=== PATIENT | male | born 1965 | race Two or more races ===

== ENCOUNTER 2019-05-18 10:39 | Emergency (ER) | payer MEDICAID ==
[~2019-05-18] VITALS: Ht 175.3 cm; Wt 72.6 kg
[2019-05-18] MEDS ORDERED: levETIRAcetam 1,000mg/NS100ml 100 ML IVPB ONE (10:45)
--- NOTE | 2019-05-18 10:47 | Emergency Room Report ---
History of Present Illness General Chief Complaint: Seizure Source: Patient, EMS Present Illness HPI Disclaimer: Please note that this report is being documented using DRAGON technology. This can lead to erroneous entry secondary to incorrect interpretation by the dictating instrument. HPI: 53-year-old homeless male resents by EMS for reported seizures. The patient admits to drinking alcohol heavily and falling with a head injury. He is not very cooperative with history and frequently drifts off. EMS states that a good [employer] saw him sitting on a park bench reportedly convulsing. EMS was called and found him somnolent but arousable, did not notice seizure- like activity. They did note a hematoma over the forehead. No medications were given en route. He was conversant and oriented according to EMS. Patient has not been to this emergency department before however EMS states that he does have a seizure history according to their records. Patient does not know what medications he is supposed to be taking for seizure and does not take any medications regularly. He admits to alcohol use today stating that he drank "too much" last night. He has no complaints at this time. PMH: Seizure disorder, alcohol abuse PSH: Denies Allergies: Denies Social Hx: Alcohol abuse Allergies: Coded Allergies: PEANUT (Verified Allergy, Unknown, 05/18/19) Review of Systems All Other Systems: negative except mentioned in HPI Physical Exam Vital Signs Date Time Temp Pulse Resp B/P (MAP) Pulse Ox O2 Delivery O2 Flow Rate FiO2 05/18/19 10:30 98.2 100 16 143/85 (104) 98 Room Air General: Somnolent but easily arousable. HEENT: There is a hematoma over the left side of the forehead. No laceration, no bleeding. Pupils are equal round and reactive. Approximately 4 mm bilaterally. Extraocular movements are intact. Mucous membranes are dry Neck: Supple, trachea midline Chest Wall: No tenderness, no deformity Cardiovascular: Borderline tachycardia. S1 and S2 normal. No murmur appreciated Resp: Normal work of breathing. No cough, wheezing or crackles appreciated Abdomen: Abdomen is soft, nondistended. Nontender Skin: Intact. No abrasions, laceration or rash over the exposed skin MSK: Normal tone and bulk. Moving all extremities. No obvious deformity. Neuro: Somnolent but arousable. GCS 13. Moving all extremities. Patient is uncooperative with a full neuro exam. Back/Spine: No midline tenderness in the cervical spine. Medical Decision Making Homeless Attestation Patient is stable and appropriate for outpatient follow-up Diagnostic Impression: Primary Impression: Hypokalemia Additional Impressions: Scalp contusion Alcohol intoxication Seizure disorder ER Course Is a 53-year-old homeless male presenting for evaluation of reported seizure- like activity. The patient does not know whether or not he had a seizure but states he was drinking heavy amount of alcohol last evening. Cannot recall last drink but states he was having a lot of liquor. Does not know whether he should be taking antiepileptic medications. He appears to have a head injury with a small hematoma over the left forehead. Will obtain a CT scan of the head , comprehensive labs and give IV fluids. He was loaded with 1 g of Keppra. Laboratory Tests Test 05/18/19 11:40 05/18/19 12:40 White Blood Count 8.0 K/UL (4.8-10.8) Red Blood Count 3.94 M/UL (4.70-6.10) L Hemoglobin 13.7 G/DL (14.2-18.0) L Hematocrit 38.9 % (42.0-52.0) L Mean Corpuscular Volume 99 FL (80-99) Mean Corpuscular Hemoglobin 34.7 PG (27.0-31.0) H Mean Corpuscular Hemoglobin Concent 35.1 G/DL (32.0-36.0) Red Cell Distribution Width 12.2 % (11.6-14.8) Platelet Count 173 K/UL (150-450) Mean Platelet Volume 6.9 FL (6.5-10.1) Neutrophils (%) (Auto) 77.3 % (45.0-75.0) H Lymphocytes (%) (Auto) 14.6 % (20.0-45.0) L Monocytes (%) (Auto) 6.7 % (1.0-10.0) Eosinophils (%) (Auto) 0.9 % (0.0-3.0) Basophils (%) (Auto) 0.6 % (0.0-2.0) Sodium Level 139 MMOL/L (136-145) Potassium Level 3.1 MMOL/L (3.5-5.1) L Chloride Level 110 MMOL/L (98-107) H Carbon Dioxide Level 21 MMOL/L (21-32) Anion Gap 8 mmol/L (5-15) Blood Urea Nitrogen 8 mg/dL (7-18) Creatinine 0.5 MG/DL (0.55-1.30) L Estimate Glomerular Filtration Rate > 60 mL/min (>60) Glucose Level 87 MG/DL (74-106) Calcium Level 6.6 MG/DL (8.5-10.1) L Total Bilirubin 0.4 MG/DL (0.2-1.0) Aspartate Amino Transferase (AST) 24 U/L (15-37) Alanine Aminotransferase (ALT) 17 U/L (12-78) Alkaline Phosphatase 46 U/L (46-116) Total Creatine Kinase 446 U/L (26-308) H Creatine Kinase MB 15.0 NG/ML (0.0-3.6) H Creatine Kinase MB Relative Index 3.3 Troponin I 0.000 ng/mL (0.000-0.056) Total Protein 5.1 G/DL (6.4-8.2) L Albumin 2.8 G/DL (3.4-5.0) L Globulin 2.3 g/dL Albumin/Globulin Ratio 1.2 (1.0-2.7) Salicylates Level 2.4 ug/mL (2.8-20) L Acetaminophen Level 3 MCG/ML (10-30) L Phenytoin (Dilantin) Level 0.7 ug/mL (10-20) L Serum Alcohol < 3 mg/dL Urine Color Pale yellow Urine Appearance Clear Urine pH 6 (4.5-8.0) Urine Specific Bart[place] 1.005 (1.005-1.035) Urine Protein Negative (NEGATIVE) Urine Glucose (UA) Negative (NEGATIVE) Urine Ketones Negative (NEGATIVE) Urine Blood Negative (NEGATIVE) Urine Nitrite Negative (NEGATIVE) Urine Bilirubin Negative (NEGATIVE) Urine Urobilinogen Normal MG/DL (0.0-1.0) Urine Leukocyte Esterase Negative (NEGATIVE) Urine Opiates Screen Negative (NEGATIVE) Urine Barbiturates Screen Negative (NEGATIVE) Phencyclidine (PCP) Screen Negative (NEGATIVE) Urine Amphetamines Screen Negative (NEGATIVE) Urine Benzodiazepines Screen Negative (NEGATIVE) Urine Cocaine Screen Negative (NEGATIVE) Urine Marijuana (THC) Screen Negative (NEGATIVE) EKG Diagnostic Results EKG Time: 10:54 Rate: normal Rhythm: NSR ST Segments: no acute changes Other Impression Sinus rhythm, normal axis, normal intervals, no ST segment changes Rhythm Strip Diag. Results Rhythm Strip Time: 10:54 EP Interpretation: yes Rhythm: NSR, no PVC's, no ectopy CT/MRI/US Diagnostic Results CT/MRI/US Diagnostic Results : Impression Final Report EXAM: CT Head Without Intravenous Contrast CLINICAL HISTORY: SZ TECHNIQUE: Axial computed tomography images of the head/brain without intravenous contrast. CTDI is 53.1 mGy and DLP is 1253.8 mGy-cm. One or more of the following dose reduction techniques were used: automated exposure control, adjustment of the mA and/or kV according to patient size, use of iterative reconstruction technique. COMPARISON: None FINDINGS: Brain: No acute infarct or hemorrhage identified. No extra-axial fluid collection. No mass effect or midline shift. Scattered areas of hypoattenuation in the supratentorial white matter likely represent chronic small vessel ischemic changes. Encephalomalacia in right greater than left frontal lobes. Ventricles and sulci: Prominence of the ventricles and sulci is likely secondary to cerebral volume loss. Skull: Normal. No bony lesion or fracture. Subcutaneous tissues: Left frontal soft tissue hematoma. Sinuses: Polyps versus mucous retention cysts in the right maxillary sinus. Orbits: Grossly unremarkable. Other: Atherosclerotic calcifications in the intracranial vasculature. IMPRESSION: 1. No acute intracranial abnormality. 2. Left frontal soft tissue hematoma. No acute fracture. 3. Chronic small vessel ischemic changes and cerebral volume loss. Encephalomalacia in the frontal lobes. Radiologist: Shira Meade M.D. Electronically Signed: 05/18/19 12:10 Study ready at 11:57 and initial results transmitted at 12:10 Final Report EXAM: CT Cervical Spine Without Intravenous Contrast CLINICAL HISTORY: INJ TECHNIQUE: Axial computed tomography images of the cervical spine without intravenous contrast. CTDI is 24.4 mGy and DLP is 632.1 mGy-cm. One or more of the following dose reduction techniques were used: automated exposure control, adjustment of the mA and/or kV according to patient size, use of iterative reconstruction technique. COMPARISON: None FINDINGS: Bones: Osteopenia. No acute fracture or bony lesion. Disc spaces: No subluxation. Degenerative changes of the spine Soft tissues: Normal. Other: Atherosclerotic changes of the vasculature. Mild scarring at the lung apices. IMPRESSION: No acute traumatic abnormality. Radiologist: Shira Meade M.D. Electronically Signed: 05/18/19 12:08 Study ready at 11:57 and initial results transmitted at 12:08 Reevaluation Time: 12:23 Last Vital Signs Date Time Temp Pulse Resp B/P (MAP) Pulse Ox O2 Delivery O2 Flow Rate FiO2 05/18/19 10:30 98.2 100 16 143/85 (104) 98 Room Air Reevaluation Impression CT scans show a soft tissue hematoma but no evidence of acute intercranial injury or cervical spine fracture. Labs have returned largely within normal limits. EKG unremarkable. The patient has arousable though is requesting to sleep. He has received IV fluids and is ambulating safely in the emergency department. He is stable for outpatient follow-up. Keppra has been prescribed to him. Counseled him on the need to take this medication regularly and to avoid drug and alcohol use. He understands and agrees with the treatment plan was discharged Disposition: HOME, SELF-CARE Condition: Stable Scripts Levetiracetam (KEPPRA) 500 Mg Tablet 500 MG ORAL EVERY 12 HOURS for 30 Days, #60 TAB 0 Refills Prov: Kaleb Kasper MD 05/18/19 Kaleb Kasper MD May 18, 2019 10:47
[2019-05-18 11:15] VITALS: BP 143/85
[2019-05-18] MEDS ORDERED: KEPPRA500 M4 ORAL ×2 (11:15→12:38)
--- NOTE | 2019-05-18 11:17 | NUR ---
ED Nurse Note:pt. was BIBA from the street with possible seizure today also he is ETOH, no head trauma or fall was reported but pt. has bump in the middle of his forehead with abrasion, he is A/Ox3, VSS
--- NOTE | 2019-05-18 11:42 | NUR ---
ED Nurse Note:blood sent to labs
[2019-05-18 12:04] LABS: ANION GAP 8 mmol/L (5-15); BLOOD UREA NITROGEN 8 mg/dL (7-18); CALCIUM 6.6 MG/DL (8.5-10.1); CARBON DIOXIDE 21 MMOL/L (21-32); CHLORIDE 110 MMOL/L (98-107); CREATININE 0.5 MG/DL (0.55-1.30); POTASSIUM 3.1 MMOL/L (3.5-5.1); SODIUM 139 MMOL/L (136-145)
--- NOTE | 2019-05-18 12:09 | Diagnostic Imaging Report ---
EXAM: CT Cervical Spine Without Intravenous Contrast CLINICAL HISTORY: INJ TECHNIQUE: Axial computed tomography images of the cervical spine without intravenous contrast. CTDI is 24.4 mGy and DLP is 632.1 mGy-cm. One or more of the following dose reduction techniques were used: automated exposure control, adjustment of the mA and or kV according to patient size, use of iterative reconstruction technique. COMPARISON: None FINDINGS: Bones: Osteopenia. No acute fracture or bony lesion. Disc spaces: No subluxation. Degenerative changes of the spine Soft tissues: Normal. Other: Atherosclerotic changes of the vasculature. Mild scarring at the lung apices. IMPRESSION: No acute traumatic abnormality.
--- NOTE | 2019-05-18 12:11 | Diagnostic Imaging Report ---
EXAM: CT Head Without Intravenous Contrast CLINICAL HISTORY: SZ TECHNIQUE: Axial computed tomography images of the head brain without intravenous contrast. CTDI is 53.1 mGy and DLP is 1253.8 mGy-cm. One or more of the following dose reduction techniques were used: automated exposure control, adjustment of the mA and or kV according to patient size, use of iterative reconstruction technique. COMPARISON: None FINDINGS: Brain: No acute infarct or hemorrhage identified. No extra-axial fluid collection. No mass effect or midline shift. Scattered areas of hypoattenuation in the supratentorial white matter likely represent chronic small vessel ischemic changes. Encephalomalacia in right greater than left frontal lobes. Ventricles and sulci: Prominence of the ventricles and sulci is likely secondary to cerebral volume loss. Skull: Normal. No bony lesion or fracture. Subcutaneous tissues: Left frontal soft tissue hematoma. Sinuses: Polyps versus mucous retention cysts in the right maxillary sinus. Orbits: Grossly unremarkable. Other: Atherosclerotic calcifications in the intracranial vasculature. IMPRESSION: 1. No acute intracranial abnormality. 2. Left frontal soft tissue hematoma. No acute fracture. 3. Chronic small vessel ischemic changes and cerebral volume loss. Encephalomalacia in the frontal lobes.
[2019-05-18 12:13] LABS: ALANINE AMINOTRANSFERASE 17 U/L (12-78); ALBUMIN 2.8 G/DL (3.4-5.0); ALBUMIN/GLOBULIN RATIO 1.2 (1.0-2.7); ALKALINE PHOSPHATASE 46 U/L (46-116); ASPARTATE AMINO TRANSFERASE 24 U/L (15-37); BILIRUBIN,TOTAL 0.4 MG/DL (0.2-1.0); CREATINE KINASE 446 U/L (26-308)
[2019-05-18 12:18] LABS: BASOPHILS % (AUTO) 0.6 % (0.0-2.0); EOSINOPHILS % (AUTO) 0.9 % (0.0-3.0); HEMATOCRIT 38.9 % (42.0-52.0); HEMOGLOBIN 13.7 G/DL (14.2-18.0); LYMPHOCYTES % (AUTO) 14.6 % (20.0-45.0); MEAN CORPUSCULAR VOLUME 99 FL (80-99); MONOCYTES % (AUTO) 6.7 % (1.0-10.0); NEUTROPHILS % (AUTO) 77.3 % (45.0-75.0); PLATELET COUNT 173 K/UL (150-450); RED BLOOD COUNT 3.94 M/UL (4.70-6.10); RED CELL DISTRIBUTION WIDTH 12.2 % (11.6-14.8)
[2019-05-18 13:02] LABS: APPEARANCE,URINE CLEAR; BILIRUBIN, URINE NEGATIVE (NEGATIVE); COLOR,URINE PALE YELLOW; GLUCOSE, URINE (UA) NEGATIVE (NEGATIVE); KETONES,URINE NEGATIVE (NEGATIVE); LEUKOCYTE ESTERASE ,URINE NEGATIVE (NEGATIVE); NITRITE,URINE NEGATIVE (NEGATIVE); PH,URINE 6 (4.5-8.0); PROTEIN,URINE NEGATIVE (NEGATIVE); UROBILINOGEN,URINE NORMAL MG/DL (0.0-1.0)
[2019-05-18 13:45] VITALS: BP 109/82
--- NOTE | 2019-05-18 13:50 | NUR ---
ER DISCHARGE NOTE:homeless d/c form signed by pt Patient is cleared to be discharged per ERMD, pt is aox4, on room air, with stable vital signs. pt was given dc and prescription instructions, pt was able to verbalize understanding, pt id band and iv site removed without complications. pt is able to ambulate with steady gait. pt took all belongings.
[2019-05-18 14:22] VITALS: BP 143/85
--- NOTE | 2019-05-19 11:34 | Cardiology Report ---
APPROVED REPORT EKG Measurement Heart [id number] Normal sinus rhythm Normal ECG
== END 2019-05-18 14:25 | disposition home or self-care (01) ==
LOC: EDBD 10:39 → EMR 11:00
DX: G40.909 Epilepsy, unspecified, not intractable, without status epilepticus (principal); S00.03XA Contusion of scalp, initial encounter; F10.129 Alcohol abuse with intoxication, unspecified; E87.6 Hypokalemia; G93.89 Other specified disorders of brain; W18.39XA Other fall on same level, initial encounter; Y92.830 Public park as the place of occurrence of the external cause
CPT/HCPCS: 36415; 70450; 72125; 80053; 80185; 80196; 80307; 80329; 81003; 82550; 82553; 82962; 84484; 85025; 93005; 96361; 96374; J1953; Z7502; 99284